=== PATIENT | female | born 1965 | race Caucasian/White ===

== ENCOUNTER → 2016-09-15 | Outpatient (CLI) | payer OTHER ==
[2016-09-15 13:11] LABS: ESTIMATED AVERAGE GLUCOSE 134 mg/dl; HA1C FLAG Normal (Normal)
[2016-09-15 13:23] LABS: ALT/SGPT 39 U/L (12-78); AST/SGOT 16 U/L (15-37); BLOOD UREA NITROGEN 15 mg/dl (7-18); BUN/CREATININE RATIO 18.4 (10-20); CALCIUM 9.1 mg/dl (8.5-10.1); CARBON DIOXIDE 22 mmol/L (21-32); CHLORIDE 108 mmol/L (98-107); CREATININE 0.83 mg/dl (0.60-1.20); GLUCOSE 138 mg/dl (70-99); POTASSIUM 3.9 mmol/L (3.5-5.1); SODIUM 141 mmol/L (136-145)
[2016-09-15 13:27] LABS: ALB/GLOB RATIO 1.1 (0.9-2); ALKALINE PHOSPHATASE 74 U/L (45-117); CHOLESTEROL 213 mg/dl (0-200); CHOLESTEROL/HDL RATIO 5.5; HDL CHOLESTEROL 39 mg/dl; LDL CHOLESTEROL CALCULATED 115 mg/dl; TRIGLYCERIDES 296 mg/dl (0-150); VERY LOW DENSITY LIPOPROT CALC 59 mg/dl
== END | disposition home or self-care (01) ==
LOC: C.LABBFT 08:23
PROVIDERS: ATTEND Nurse Practitioner
DX: E78.5 Hyperlipidemia, unspecified (principal); R73.9 Hyperglycemia, unspecified

== ENCOUNTER → 2017-07-26 | Outpatient (CLI) | payer OTHER ==
[2017-07-26 17:41] LABS: ALT/SGPT 41 U/L (12-78); BLOOD UREA NITROGEN 11 mg/dl (7-18); BUN/CREATININE RATIO 14.6 (10-20); CALCIUM 9.5 mg/dl (8.5-10.1); CARBON DIOXIDE 25 mmol/L (21-32); CHLORIDE 106 mmol/L (98-107); CREATININE 0.74 mg/dl (0.60-1.20); GLUCOSE 92 mg/dl (70-99); POTASSIUM 3.9 mmol/L (3.5-5.1); SODIUM 140 mmol/L (136-145)
[2017-07-26 17:44] LABS: AST/SGOT 25 U/L (15-37); CHOLESTEROL 205 mg/dl (0-200); CHOLESTEROL/HDL RATIO 5.7; HDL CHOLESTEROL 36 mg/dl; TRIGLYCERIDES 412 mg/dl (0-150)
== END | disposition home or self-care (01) ==
LOC: C.LABBFT 11:34
PROVIDERS: ATTEND Nurse Practitioner
DX: E78.5 Hyperlipidemia, unspecified (principal); Z13.220 Encounter for screening for lipoid disorders

== ENCOUNTER → 2017-08-01 | Outpatient (CLI) | payer OTHER ==
--- NOTE | 2017-08-01 08:54 | DIAGNOSTIC IMAGING REPORT ---
PELVIC ULTRASOUND CLINICAL HISTORY: Postmenopausal bleeding. COMPARISON STUDY: None. TECHNIQUE: Transabdominal and transvaginal sonography of the pelvis was performed. FINDINGS: The uterus measures 8.9 x 4.5 x 5.1 cm. On transabdominal portion of the study, the thickness of the endometrium appears normal, measuring approximately 4 mm. Endometrium is partially obscured on the transvaginal portion of the study. Overall, endometrial thickness appears normal. The left ovary was not visualized. The right ovary measures 2.5 x 2 x 1.9 cm. There is no free fluid. IMPRESSION: 1. Normal endometrial thickness on transabdominal exam. Endometrium obscured on transvaginal exam. Overall, no convincing evidence for endometrial thickening. 2. Nonvisualization of the left ovary. Electronically signed by: Karan Dumont M.D. 08/01/2017 8:52 AM Dictated Date/Time: 08/01/2017 8:43 AM
== END | disposition home or self-care (01) ==
LOC: C.ULTR 07:48
PROVIDERS: ATTEND Nurse Practitioner
DX: N95.0 Postmenopausal bleeding (principal)

== ENCOUNTER → 2018-04-26 | Outpatient (CLI) | payer OTHER ==
[~2018-04-26] MED LIST: CHN/1 PO; OXYC-737 PO
--- NOTE | 2018-04-26 11:39 | DIAGNOSTIC IMAGING REPORT ---
KUB HISTORY: N20.0 Nephrolithiasis COMPARISON: Abdomen and pelvis CT 04/03/2018. FINDINGS: The bowel gas pattern is unremarkable. There are no dilated loops of small bowel to suggest an obstruction. No change in the 8 mm stone within the proximal right ureter. This is adjacent to the right L3 transverse process. The renal shadows are partially obscured by overlying bowel gas. Stable punctate stone within the lower pole the left kidney. No right renal calculi. There are few pelvic phleboliths present. No pneumoperitoneum or pneumatosis. IMPRESSION: No change in the proximal right ureteral stone. Stable left-sided nephrolithiasis. Electronically signed by: Jose Hurd M.D. 04/26/2018 11:37 AM Dictated Date/Time: 04/26/2018 11:35 AM
== END | disposition home or self-care (01) ==
LOC: C.RAD 11:04
PROVIDERS: ATTEND Urology
DX: N20.0 Calculus of kidney (principal)

== ENCOUNTER → 2018-05-04 | Outpatient (CLI) | payer OTHER ==
[~2018-05-04] MED LIST changes: +OXYC-57 PO
--- NOTE | 2018-05-04 17:18 | DIAGNOSTIC IMAGING REPORT ---
KUB CLINICAL HISTORY: 52 years-old Female presenting with NEPHROLITHIASIS. TECHNIQUE: Single supine view of the abdomen was obtained. COMPARISON: 04/26/2018. FINDINGS: Nonobstructive bowel gas pattern. No gross pneumoperitoneum. Redemonstration of the calculus at the lower pole the left kidney. Redemonstration of the dominant calculus along the course of the right ureter, which is now at the level of L3-4, slightly progressed from prior. Stable distribution of pelvic phleboliths. Osseous structures normal. IMPRESSION: 1. Stable to slight interval progression of the proximal to mid right ureteral calculus. 2. Left nephrolithiasis. Electronically signed by: Parmjit Glasgow M.D. 05/04/2018 5:17 PM Dictated Date/Time: 05/04/2018 5:14 PM
== END | disposition home or self-care (01) ==
LOC: C.RAD 16:54
PROVIDERS: ATTEND Urology
DX: N20.0 Calculus of kidney (principal); N20.1 Calculus of ureter

== ENCOUNTER → 2018-05-05 | Day surgery (SDC) | payer OTHER ==
[2018-04-27 09:50] VITALS: BMI 45.0
[2018-04-28 09:53] VITALS: Ht 165.1 cm; Wt 122.1 kg
--- NOTE | 2018-04-28 10:41 | DIAGNOSTIC IMAGING REPORT ---
CHEST 2 VIEWS ROUTINE CLINICAL HISTORY: 52 years-old Female presenting with preoperative assessment. TECHNIQUE: PA and lateral views of the chest were obtained. COMPARISON: Chest CT from 2012. FINDINGS: Cardiomediastinal silhouette normal. Calcified granuloma at the right lung base. Lungs and pleural spaces otherwise clear. Osseous structures normal. Upper abdomen normal. IMPRESSION: 1. No acute cardiopulmonary disease. Electronically signed by: Parmjit Glasgow M.D. 04/28/2018 10:40 AM Dictated Date/Time: 04/28/2018 10:39 AM
[~2018-05-05] VITALS: Ht 165.1 cm; Wt 122.1 kg
[~2018-05-05] MED LIST changes: +ATROPINE SULFATE 0.1 MG/ML 5ML SYR IV PRN; +CIPROFLOXACIN / D5W 400 MG IV SCH; +DEXAMETHASONE SOD INJ 4 MG/ML VIAL ONE; +EpHEDrine SULFATE INJ 50 MG/ML AMP IV PRN; +FENTANYL CITRATE INJ 50 MCG/1 ML 2 ML VIAL IV PRN; +FENTANYL CITRATE INJ 50 MCG/1 ML 2 ML VIAL ONE; +LACTATED RINGER'S 1000ML 1,000 ML IV SCH; +LIDOCAINE HCL 2% 2 ML VIAL (20MG/ML) ONE; +MIDAZOLAM HCL 1 MG/ML 2ML VIAL ONE; +ONDANSETRON INJ 2 MG/ML 2 ML VIAL IV PRN; +ONDANSETRON INJ 2 MG/ML 2 ML VIAL ONE; +OXYCODONE/ACETAMINOPHEN 5-325 TAB PO PRN; +PROPOFOL IV EMULSION 10 MG/ML 20 ML VIAL ONE
--- NOTE | 2018-05-05 09:06 | History & Physical Bridge Note ---
H&P Re-Evaluation Bridge Note: I have examined the patient, reviewed the History & Physical and in the interval since the performance of the History & Physical I have noted the following changes of clinical significance: No changes noted
--- NOTE | 2018-05-05 10:00 | Discharge Instructions-SurgCtr ---
Discharge Instructions Date of Service May 05, 2018. Visit Reason for Visit: STONE Discharge Discharge Diagnosis / Problem: STONE Discharge Goals Goal(s): Therapeutic intervention Activity Recommendations Activity Limitations: per Instructions/Follow-up section Exercise/Sports Limitations: rest today May Resume Sexual Activity: when tolerated Shower/Bathe: no limitations Driving or Machine Use: resume 1 day after discharge MEDICATIONS: Resume previous medications unless instructed otherwise by your surgeon. Resume pre-ES[facility] medication except for aspirin, coumadin or other blood thinners. __ Toradol 10 mg every 6 hours for initial pain. __ Lortab 5 mg 1-2 every 4 hours for pain. _X_ Percocet 5 mg 1-2 every 4 hours for pain. __ Macrodantin 50 mg x 3 a day. __ Flomax 1 tab daily one half (1/2) hour after supper. SPECIAL CARE INSTRUCTIONS: 1. Get KUB (x-ray) _X_ day before or day of office visit and bring x-ray to office __ get x-ray 2 days before and tell office you are getting x-rays when you call for the appointment. 2. Strain ALL urine. 3. Please call if you have a fever, chills, severe pain, or constant dribbling of urine. 4. Office phone number . FOLLOW UP VISIT: Please call the office to schedule a follow-up appointment at . Anesthesia . Post Anesthesia Instructions: If you have had General Anesthesia or IV Sedation: * Do not drive today. * Resume driving when surgeon permits. * Do not make important decisions or sign legal documents today. * Call surgeon for: 1. Temperature elevations greater than 101 degrees F. 2. Uncontrollable pain. 3. Excessive bleeding. 4. Persistent nausea and vomiting. 5. Medication intolerance (nausea, vomiting or rash). * For nausea and vomiting use only clear liquids such as: tea, soda, bouillon until nausea subsides, then gradually increase diet as tolerated. * If you have any concerns or questions, call your surgeon's office. If physician is unavailable and it is an emergency, call 911 or go to the nearest emergency room. . Diet Recommendations Home Diet: resume previous diet Pending Studies Studies pending at discharge: no Medical Emergencies . Who to Call and When: Medical Emergencies: If at any time you feel your situation is an emergency, please call 911 immediately. . Non-Emergent Contact Non-Emergency issues call your: Urologist Call Non-Emergent contact if: temperature is above 101.5, your pain is not controlled . . "Provider Documentation" section prepared by Andi Hood. . [place] Drug Monitoring Program Search Results: patient reviewed within database
--- NOTE | 2018-05-05 10:03 | [facility] Operative Report ---
Operative Report Operative Date May 05, 2018. Pre-Operative Diagnosis RIGHT URETERAL STONE Post-Operative Diagnosis SAME Procedure(s) Performed RIGHT ESWL Surgeon LUCINA Framing Machine Tender Surgeon(s) NONE Estimated Blood Loss NONE Findings RIGHT URETERAL STONE Specimens NONE Drains None Anesthesia Type General Complication(s) none Disposition yes Recovery Room / PACU Indications RIGHT URETERAL STONE Description of Procedure Patient was identified in the preoperative holding area, appropriate informed consent was reviewed and completed and the patient was transported to the operating suite. Upon arrival appropriate preoperative antibiotics were administered and general anesthesia induced. The patient was placed in supine position and the stone was localized under fluoroscopy. A total of [_3000__] shocks were delivered to the stone. There appeared to be good fragmentation of the stone. Details of this procedure can be found on the [facility] [place] [facility] information sheet. At the conclusion of the case the patient was extubated and taken to the PACU in stable condition. There were no complications. I attest to the content of the Intraoperative Record and any orders documented therein. Any exceptions are noted below.
[2018-05-05 11:45] VITALS: TEMP 36.4
--- NOTE | 2018-05-05 11:50 | Anesthesia Progress Nt - [facility] ---
Anesthesia Post Op Note Date & Time May 05, 2018 at 11:49 Vital Signs Pain Intensity: 0 Vital Signs Past 12 Hours Date Time Temp Pulse Resp B/P (MAP) Pulse Ox O2 Delivery O2 Flow Rate FiO2 05/05/18 11:31 78 15 05/05/18 11:31 78 15 95 05/05/18 11:30 136/84 05/05/18 11:26 79 17 92 05/05/18 11:26 81 17 05/05/18 11:25 125/77 05/05/18 11:21 80 15 05/05/18 11:21 80 15 95 05/05/18 11:20 132/77 05/05/18 11:19 79 13 05/05/18 11:19 77 13 95 05/05/18 11:17 36.2 82 18 132/77 94 Room Air 05/05/18 11:15 136/83 05/05/18 11:14 78 14 05/05/18 11:14 77 14 96 05/05/18 11:11 126/95 05/05/18 11:09 79 15 99 05/05/18 11:09 80 15 05/05/18 11:05 127/79 05/05/18 11:04 84 21 05/05/18 11:04 84 21 97 05/05/18 11:00 125/86 05/05/18 10:59 85 23 97 05/05/18 10:59 85 23 05/05/18 10:55 131/87 05/05/18 10:54 95 17 99 05/05/18 10:54 94 17 05/05/18 10:50 141/90 05/05/18 10:49 84 17 05/05/18 10:49 85 17 98 05/05/18 10:45 120/87 05/05/18 10:44 130/87 05/05/18 10:44 36.3 85 18 130/87 98 Mask 6 05/05/18 08:18 36.5 86 18 128/68 (88) 95 Room Air Notes Mental Status: alert / awake / arousable, participated in evaluation Pt Amnestic to Procedure: Yes Nausea / Vomiting: adequately controlled Pain: adequately controlled Airway Patency, RR, SpO2: stable & adequate BP & HR: stable & adequate Hydration State: stable & adequate Anesthetic Complications: no major complications apparent
[2018-05-05 12:06] VITALS: BP 138/79; PULSE 68; O2SAT 97
== END | disposition home or self-care (01) ==
LOC: X.SURG 07:39
PROVIDERS: ATTEND Urology
DX: N20.1 Calculus of ureter (principal); E78.5 Hyperlipidemia, unspecified; F17.200 Nicotine dependence, unspecified, uncomplicated; E66.01 Morbid (severe) obesity due to excess calories; Z68.41 Body mass index [BMI] 40.0-44.9, adult; Z88.0 Allergy status to penicillin